=== PATIENT | male | born 1995 | race Caucasian/White ===

== ENCOUNTER 2017-10-11 05:03 | Emergency (ER) | payer MEDICAID ==
[2017-10-11 05:04] VITALS: BP 174/111; PULSE 97; RESP 16; TEMP 98; O2SAT 98
[2017-10-11] MEDS ORDERED: SODIUM CHLOR 0.9% 1000 ML INJ 1,000 ML IV SCH (05:32)
[2017-10-11] MEDS ORDERED: KETOROLAC TROMETHAMINE 30 MG/ML (IVP) VIAL IVP ONE (05:45)
[2017-10-11] MEDS ORDERED: ONDANSETRON HCL 4 MG/2 ML VIAL IVP ONE (05:45)
[2017-10-11] MEDS ORDERED: SODIUM CHLORIDE 0.9% FLUSH 10 ML FLUSH IV FLUSH PRN (05:45)
[2017-10-11 05:47] VITALS: O2SAT 99
[2017-10-11 05:55] VITALS: BP 157/67; PULSE 78; RESP 18; O2SAT 99
[2017-10-11 05:55] LABS: AUTOMATED NEUTROPHIL # 7.8 TH/MM3 (1.8-7.7); BASOPHIL # 0.1 TH/MM3 (0-0.2); BASOPHIL % 0.5 % (0.0-2.0); EOSINOPHIL # 0.2 TH/MM3 (0-0.4); EOSINOPHIL % 1.4 % (0.0-4.0); HEMATOCRIT 49.6 % (39.0-51.0); HEMOGLOBIN 16.7 GM/DL (13.0-17.0); LYMPH % 37.7 % (9.0-44.0); LYMPHOCYTE # 5.5 TH/MM3 (1.0-4.8); MEAN CELL VOLUME 93.3 FL (80.0-100.0); MEAN CORPUSCULAR HEMOGLOBIN 31.3 PG (27.0-34.0); MEAN CORPUSCULAR HGB CONC 33.6 % (32.0-36.0); MEAN PLATELET VOLUME 8.9 FL (7.0-11.0); MONO % 6.7 % (0.0-8.0); NEUT % 53.7 % (16.0-70.0); PLATELET COUNT 293 TH/MM3 (150-450); RED BLOOD COUNT 5.32 MIL/MM3 (4.50-5.90); RED CELL DISTRIBUTION WIDTH 13.2 % (11.6-17.2); WHITE BLOOD COUNT 14.5 TH/MM3 (4.0-11.0)
[2017-10-11 06:12] LABS: ALBUMIN 4.1 GM/DL (3.4-5.0); ALT (GPT) 27 U/L (12-78); AST (GOT) 15 U/L (15-37); BICARBONATE 27.9 MEQ/L (21.0-32.0); BLOOD UREA NITROGEN 9 MG/DL (7-18); CALCIUM 9.5 MG/DL (8.5-10.1); CHLORIDE 104 MEQ/L (98-107); CREATININE 0.27 MG/DL (0.60-1.30); GLOMERULAR FILTRATION RATE 416 ML/MIN (>89); GLUCOSE,RANDOM 87 MG/DL (74-106); SODIUM (NA) 140 MEQ/L (136-145)
[2017-10-11 06:14] LABS: ALKALINE PHOSPHATASE 85 U/L (45-117); TOTAL BILIRUBIN ADULT 0.5 MG/DL (0.2-1.0); TOTAL PROTEIN 8.2 GM/DL (6.4-8.2)
[2017-10-11 06:19] LABS: BACTERIA, URINE RARE /hpf; BILIRUBIN, URINE NEG (NEG); BLOOD, URINE MOD (NEG); GLUCOSE,URINE NEG (NEG); HYALINE CAST, URINE 2 /lpf (RARE); KETONE, URINE NEG (NEG); MUCUS URINE FEW /lpf (OCC); NITRITE,URINE NEG (NEG); PH, URINE 6.5 (5.0-8.5); SQUAMOUS EPITHELIAL CELL URINE <1 /hpf (0-5); URINE COLOR LIGHT-YELLOW (YELLW/STRAW); URINE LEUKOCYTE ESTERASE NEG (NEG)
--- NOTE | 2017-10-11 06:30 | RADRPT ---
EXAM DATE/TIME: 10/11/2017 05:59 [place] COMPARISON: No previous studies available for comparison. INDICATIONS : Right flank pain. ORAL CONTRAST: No oral contrast ingested. RADIATION DOSE: 25.30 CTDIvol (mGy) MEDICAL HISTORY : Muscular distrophy. SURGICAL HISTORY : Cholecystectomy. Guan rods. ENCOUNTER: Initial ACUITY: 1 day PAIN SCALE: 7/10 LOCATION: Right flank TECHNIQUE: Volumetric scanning of the abdomen and pelvis was performed. Using automated exposure control and ad justment of the mA and/or kV according to patient size, radiation dose was kept as low as reasonably achievable to obtain optimal diagnostic quality images. DICOM format image data is available electro nically for review and comparison. FINDINGS: LOWER LUNGS: The visualized lower lungs are clear. LIVER: Homogeneous density without lesion. There is no dilation of the biliary tree. Patient is status post cholecystectomy. SPLEEN: Normal size without lesion. PANCREAS: Within normal limits. KIDNEYS: Left kidney is radiographically normal. Right-sided hydronephrosis and hydroureter due to a 4-[address] one in the distal right ureter at the level just above the right acetabular roof.. ADRENAL GLANDS: Within normal limits. VASCULAR: There is no aortic aneurysm. BOWEL/MESENTERY: The stomach, small bowel, and colon demonstrate no acute abnormality. There is no free intraperitone al air or fluid. Appendix is identified and is radiographically normal. ABDOMINAL WALL: Within normal limits. RETROPERITONEUM: There is no lymphadenopathy. BLADDER: No wall thickening or mass. REPRODUCTIVE: Within normal limits. INGUINAL: There is no lymphadenopathy or hernia. MUSCULOSKELETAL: Severe dextrorotoscoliosis of the thoracolumbar spine with extensive Guan giuseppe fixation. CONCLUSION: 1. Patient's symptoms are due to a 4-5 mm stone in the distal right ureter, just above the right acet abular roof with resulting hydroureter and right hydronephrosis. 2. Patient is status post cholecystectomy. 3. Marked rotoscoliosis of the thoracolumbar spine with extensive Guan giuseppe fixation. Yves Ewing MD on October 11, 2017 at 6:24 Board Certified Radiologist. This report was verified electronically.
[2017-10-11 06:48] LABS: BANDS 1 % (0-6); BASOPHILS 1 % (0-2); LYMPHOCYTES 38 % (9-44); MONOCYTES 4 % (0-8); NEUTROPHIL # MANUAL DIFF 8.1 TH/MM3 (1.8-7.7); POLYS (SEG NEUTROPHILS) 55 % (16-70)
[2017-10-11] MEDS ORDERED: NORC5TAB PO (06:58)
[2017-10-11] MEDS ORDERED: TAMS5CAP PO (06:58)
--- NOTE | 2017-10-11 06:58 | PD ---
HPI Chief Complaint: Flank/Kidney Pain Time Seen by Provider: 05:24 Travel History International Travel<30 days: No Contact w/Intl Traveler<30days: No Traveled to known affect area: No History of Present Illness HPI Patient is a 22 year old male who comes in complaining of right flank pain and dark urine. He says he had some dark urine about a week ago and he thinks it is due to a new filter that he put on his water. He says his urine cleared up and then became bloody again yesterday. He also developed severe pain to his right flank. He denies nausea or vomiting. He denies fever chills. He has not taken anything for the pain. He denies burning with urination. Severity is mild to moderate. PFSH Past Medical History Diabetes: No Diminished Hearing: No Musculoskeletal: Yes () Immunizations Current: Yes Past Surgical History Cholecystectomy: Yes Other Surgery: Yes (SCOLIOSIS AND GALLBLADDER) Social History Alcohol Use: No Tobacco Use: No Substance Use: No Allergies-Medications (Allergen,Severity, Reaction): Coded Allergies: No Known Allergies (Unverified Adverse Reaction, Unknown, 10/11/17) Reported Meds & Prescriptions Reported Meds & Active Scripts Active No Active Prescriptions or Reported Medications Review of Systems Except as stated in HPI: all other systems reviewed are Neg General / Constitutional: No: Fever, Chills HENT: No: Headaches, Lightheadedness Cardiovascular: No: Chest Pain or Discomfort Respiratory: No: Shortness of Breath Gastrointestinal: Positive: Abdominal Pain, No: Nausea, Vomiting Genitourinary: Positive: Hematuria, Flank Pain Skin: No Rash, No Change in Pigmentation Neurologic: No: Weakness, Dizziness Physical Exam Narrative GENERAL: Awake and alert, no acute distress. SKIN: Focused skin assessment warm/dry. No wounds or signs of infection. HEAD: Atraumatic. Normocephalic. EYES: Pupils equal and round. No scleral icterus. ENT: Mucous membranes pink and moist. NECK: Trachea midline. No JVD. CARDIOVASCULAR: Regular rate and rhythm. No murmur appreciated. RESPIRATORY: No accessory muscle use. Clear to auscultation. Breath sounds equal bilaterally. GASTROINTESTINAL: Abdomen soft, nondistended. Right CVA tenderness, right lower quadrant abdominal pain. No rebound or guarding. MUSCULOSKELETAL: No obvious deformities. No clubbing. No cyanosis. No edema. NEUROLOGICAL: Awake and alert. No obvious cranial nerve deficits. Motor grossly within normal limits. Normal speech. PSYCHIATRIC: Appropriate mood and affect; insight and judgment normal. Data Data Last Documented VS Vital Signs Date Time Temp Pulse Resp B/P (MAP) Pulse Ox O2 Delivery O2 Flow Rate FiO2 10/11/17 05:55 78 18 157/67 (97) 99 Room Air 10/11/17 05:04 98.0 Orders Orders Complete Blood Count With Diff (10/11/17 05:32) Comprehensive Metabolic Panel (10/11/17 05:32) Urinalysis - C+S If Indicated (10/11/17 05:32) Ct Abd/Pel W/O Iv Contrast (10/11/17 05:32) Iv Access Insert/Monitor (10/11/17 05:32) Ecg Monitoring (10/11/17 05:32) Oximetry (10/11/17 05:32) Ondansetron Inj (Zofran Inj) (10/11/17 05:45) Sodium Chlor 0.9% 1000 Ml Inj (Ns 1000 M (10/11/17 05:32) Sodium Chloride 0.9% Flush (Ns Flush) (10/11/17 05:45) Ketorolac Inj (Toradol Inj) (10/11/17 05:45) Acetamin-Hydrocod 325-5 Mg ([place] 5-325 (10/11/17 07:00) Labs Laboratory Tests Test 10/11/17 05:40 White Blood Count 14.5 TH/MM3 Red Blood Count 5.32 MIL/MM3 Hemoglobin 16.7 GM/DL Hematocrit 49.6 % Mean Corpuscular Volume 93.3 FL Mean Corpuscular Hemoglobin 31.3 PG Mean Corpuscular Hemoglobin Concent 33.6 % Red Cell Distribution Width 13.2 % Platelet Count 293 TH/MM3 Mean Platelet Volume 8.9 FL Neutrophils (%) (Auto) 53.7 % Lymphocytes (%) (Auto) 37.7 % Monocytes (%) (Auto) 6.7 % Eosinophils (%) (Auto) 1.4 % Basophils (%) (Auto) 0.5 % Neutrophils # (Auto) 7.8 TH/MM3 Lymphocytes # (Auto) 5.5 TH/MM3 Monocytes # (Auto) 1.0 TH/MM3 Eosinophils # (Auto) 0.2 TH/MM3 Basophils # (Auto) 0.1 TH/MM3 CBC Comment AUTO DIFF Differential Total Cells Counted 100 Neutrophils % (Manual) 55 % Band Neutrophils % 1 % Lymphocytes % 38 % Monocytes % 4 % Eosinophils % 1 % Basophils % 1 % Neutrophils # (Manual) 8.1 TH/MM3 Differential Comment FINAL DIFF MANUAL Atypical Lymphocytes % Platelet Estimate NORMAL Platelet Morphology Comment NORMAL Red Cell Morphology Comment NORMAL Urine Color LIGHT-YELLOW Urine Turbidity CLEAR Urine pH 6.5 Urine Specific [place] 1.006 Urine Protein NEG mg/dL Urine Glucose (UA) NEG mg/dL Urine Ketones NEG mg/dL Urine Occult Blood MOD Urine Nitrite NEG Urine Bilirubin NEG Urine Urobilinogen LESS THAN 2.0 MG/DL Urine Leukocyte Esterase NEG Urine RBC 23 /hpf Urine WBC 2 /hpf Urine Squamous Epithelial Cells <1 /hpf Urine Bacteria RARE /hpf Urine Hyaline Casts 2 /lpf Urine Mucus FEW /lpf Microscopic Urinalysis Comment CULT NOT INDICATED Blood Urea Nitrogen 9 MG/DL Creatinine 0.27 MG/DL Random Glucose 87 MG/DL Total Protein 8.2 GM/DL Albumin 4.1 GM/DL Calcium Level 9.5 MG/DL Alkaline Phosphatase 85 U/L Aspartate Amino Transf (AST/SGOT) 15 U/L Alanine Aminotransferase (ALT/SGPT) 27 U/L Total Bilirubin 0.5 MG/DL Sodium Level 140 MEQ/L Potassium Level 3.7 MEQ/L Chloride Level 104 MEQ/L Carbon Dioxide Level 27.9 MEQ/L Anion Gap 8 MEQ/L Estimat Glomerular Filtration Rate 416 ML/MIN [facility] Medical Decision Making Medical Screen Exam Complete: Yes Emergency Medical Condition: Yes Medical Record Reviewed: Yes Differential Diagnosis UTI versus renal stone versus dehydration Narrative Course Patient is a 22-year-old male comes in complaining of right flank pain and dark urine. Exam shows right CVA tenderness as well as right lower quadrant tenderness. IV established, labs sent. Labs show an elevated white blood cell count 14.7, no other acute abnormalities. CT abdomen and pelvis performed shows an obstructing renal stone with right-sided hydronephrosis. Creatinine is within normal limits. Last 24 hours Impressions Abdomen/Pelvis CT 10/11/17 0532 Signed Impressions: Service Date/Time: October 05:59 - CONCLUSION: 1. Patient's symptoms are due to a 4-5 mm stone in the distal right ureter, just above the right acetabular roof with resulting hydroureter and right hydronephrosis. 2. Patient is status post cholecystectomy. 3. Marked rotoscoliosis of the thoracolumbar spine with extensive Guan giuseppe fixation. Yves Ewing MD Patient given IV fluids, Toradol. He reports some improvement, but still has some pain. Given a [place]. He is advised follow-up with urology. Advised to drink plenty of fluids. Discharged home with prescriptions for Flomax as well as pain medicine. Advised return anytime for any worsening symptoms. Diagnosis Primary Impression: Kidney stone Referrals: Bart Garcia MD call for appointment Patient Instructions: General Instructions, Kidney Stones (ED) Additional Instructions: Drink plenty of fluids. Follow-up with urology. Take ibuprofen for pain. You can take a [place] as needed for severe pain. Return to the ED as needed for any worsening symptoms. Scripts Hydrocodone-Acetaminophen ([place]) 5 Mg-325 Mg Tab 1 TAB PO Q6H Y for PAIN, #12 TAB 0 Refills Prov: Lena Echeverria MD 10/11/17 Tamsulosin (Flomax) 0.4 Mg Cap 0.4 MG PO HS for Manage Prostate Problems, #7 CAP 0 Refills Prov: Lena Echeverria MD 10/11/17 Disposition: 01 DISCHARGE HOME Condition: Stable Lena Echeverria MD October 11, 2017 06:58
[2017-10-11] MEDS ORDERED: ACETAMINOPHEN/HYDROcodone 325 MG/5 MG TAB PO ONE (07:00)
== END 2017-10-11 07:08 | disposition home or self-care (01) ==
LOC: NEPE 05:03
DX: N13.2 Hydronephrosis with renal and ureteral calculous obstruction (principal)
CPT/HCPCS: 74176; 80053; 81001; 85007; 85027; 96361; 96374; 96375; J1885; J2405; J7030

== ENCOUNTER 2017-10-12 19:05 | Inpatient (IN) | payer MEDICAID ==
[~2017-10-12] VITALS: Ht 170.2 cm; Wt 71.0 kg
[~2017-10-12 19:05] MED LIST: NORC5TAB PO; TAMS5CAP PO
[2017-10-12 19:19] VITALS: BP 152/92; PULSE 83; RESP 16; TEMP 99.1; O2SAT 83
[2017-10-12] MEDS ORDERED: MORPHINE SULFATE 4 MG/ML INJ IV PUSH ONE (20:15)
[2017-10-12] MEDS ORDERED: ONDANSETRON HCL 4 MG/2 ML VIAL IV PUSH ONE (20:15)
[2017-10-12] MEDS ORDERED: KETOROLAC TROMETHAMINE 30 MG/ML (IVP) VIAL IV PUSH ONE (20:15)
[2017-10-12] MEDS ORDERED: SODIUM CHLOR 0.9% 1000 ML INJ 1,000 ML IV ONE (20:15)
--- NOTE | 2017-10-12 20:15 | PD ---
HPI Chief Complaint: Flank/Kidney Pain Time Seen by Provider: 19:59 Travel History International Travel<30 days: No Contact w/Intl Traveler<30days: No Traveled to known affect area: No History of Present Illness HPI This is a 22-year-old male who has a history of spinal muscular atrophy who presents to the emergency department with right-sided flank pain, constant, severe, 10 out of 10 associated with nausea. Yesterday he was seen in the emergency department and diagnosed with a 4-5 mm stone in the distal right ureter with hydroureter and hydronephrosis. Patient was discharged home. His pain persisted and worsened overnight. He is wheelchair-bound and has difficulty caring for himself when he is ill. He was unable to fill his prescriptions and his symptoms have only been getting worse. He denies any fevers or chills. PFSH Past Medical History Diabetes: No Diminished Hearing: No Musculoskeletal: Yes (MD) Immunizations Current: Yes Tetanus Vaccination: Unknown Influenza Vaccination: No Past Surgical History Cholecystectomy: Yes Other Surgery: Yes (SCOLIOSIS AND GALLBLADDER) Social History Alcohol Use: No Tobacco Use: No Substance Use: No Allergies-Medications (Allergen,Severity, Reaction): Coded Allergies: No Known Allergies (Unverified Adverse Reaction, Unknown, 10/11/17) Reported Meds & Prescriptions Reported Meds & Active Scripts Active Review of Systems Except as stated in HPI: all other systems reviewed are Neg Physical Exam Narrative GENERAL:Well appearing, no acute distress SKIN: Focused skin assessment warm and dry. HEAD: Atraumatic. Normocephalic. EYES: Pupils equal and round. No injection or drainage. ENT: Moist mucous membranes NECK: Trachea midline. CARDIOVASCULAR: Regular rate and rhythm. No murmur appreciated. RESPIRATORY: Clear to auscultation. Breath sounds equal bilaterally. GASTROINTESTINAL: Abdomen soft, non-tender, nondistended. : Right CVA tenderness. MUSCULOSKELETAL: Contractures to the bilateral upper extremities. NEUROLOGICAL: Awake and alert. No obvious cranial nerve deficits. PSYCHIATRIC: Appropriate mood and affect; insight and judgment normal. Data Data Last Documented VS Vital Signs Date Time Temp Pulse Resp B/P (MAP) Pulse Ox O2 Delivery O2 Flow Rate FiO2 10/12/17 22:23 62 16 137/90 (106) 98 10/12/17 19:19 99.1 Room Air Orders Orders Complete Blood Count With Diff (10/12/17 20:07) Basic Metabolic Panel (Bmp) (10/12/17 20:07) ^ Insert Iv (10/12/17 20:07) Urinalysis - C+S If Indicated (10/12/17 20:07) Ketorolac Inj (Toradol Inj) (10/12/17 20:15) Morphine Inj (Morphine Inj) (10/12/17 20:15) Sodium Chlor 0.9% 1000 Ml Inj (Ns 1000 M (10/12/17 20:15) Ondansetron Inj (Zofran Inj) (10/12/17 20:15) Admit Order (Ed Use Only) (10/12/17 22:52) Labs Laboratory Tests Test 10/12/17 20:58 White Blood Count 15.9 TH/MM3 Red Blood Count 5.11 MIL/MM3 Hemoglobin 16.0 GM/DL Hematocrit 47.8 % Mean Corpuscular Volume 93.4 FL Mean Corpuscular Hemoglobin 31.3 PG Mean Corpuscular Hemoglobin Concent 33.5 % Red Cell Distribution Width 13.0 % Platelet Count 276 TH/MM3 Mean Platelet Volume 9.3 FL Neutrophils (%) (Auto) 75.5 % Lymphocytes (%) (Auto) 16.3 % Monocytes (%) (Auto) 7.5 % Eosinophils (%) (Auto) 0.4 % Basophils (%) (Auto) 0.3 % Neutrophils # (Auto) 12.0 TH/MM3 Lymphocytes # (Auto) 2.6 TH/MM3 Monocytes # (Auto) 1.2 TH/MM3 Eosinophils # (Auto) 0.1 TH/MM3 Basophils # (Auto) 0.0 TH/MM3 CBC Comment DIFF FINAL Differential Comment Urine Color [place] Urine Turbidity Slightly Urine pH 6.5 Urine Specific [place] 1.010 Urine Protein 30 mg/dL Urine Glucose (UA) NEG mg/dL Urine Ketones 40 mg/dL Urine Occult Blood LARGE Urine Nitrite NEG Urine Bilirubin NEG Urine Urobilinogen 0.2 MG/DL Urine Leukocyte Esterase NEG Urine RBC /hpf Urine WBC 1 /hpf Urine Bacteria RARE /hpf Microscopic Urinalysis Comment CULT NOT INDICATED Blood Urea Nitrogen 10 MG/DL Creatinine 0.24 MG/DL Random Glucose 80 MG/DL Calcium Level 9.0 MG/DL Sodium Level 139 MEQ/L Potassium Level 3.7 MEQ/L Chloride Level 102 MEQ/L Carbon Dioxide Level 26.1 MEQ/L Anion Gap 11 MEQ/L Estimat Glomerular Filtration Rate 477 ML/MIN [facility]DM Medical Decision Making Medical Screen Exam Complete: Yes Emergency Medical Condition: Yes Medical Record Reviewed: Yes (Patient was seen in the emergency department yesterday and diagnosed with a 5 mm obstructing right-sided stone) Interpretation(s) Leukocytosis with 75% neutrophils Electrolytes are reassuring Urinalysis demonstrates ketones and red blood cells Differential Diagnosis Nephrolithiasis, obstructive uropathy, pyelonephritis Narrative Course This is a 22-year-old male with a history of spinal muscular atrophy who presents to the emergency department with a known kidney stone with poorly controlled pain. Patient will be admitted for pain control and urology consultation in the setting of hydronephrosis. Physician Communication Physician Communication Discussed with Dr. Lundberg Diagnosis Primary Impression: Kidney stone Admitting Information Admitting Physician Requests: Admit Mita Gonzlaez MD October 12, 2017 20:15
[2017-10-12 21:22] LABS: BILIRUBIN, URINE NEG (NEG); BLOOD, URINE LARGE (NEG); GLUCOSE,URINE NEG (NEG); KETONE, URINE 40 mg/dL (NEG); NITRITE,URINE NEG (NEG); PH, URINE 6.5 (5.0-8.5); URINE COLOR Pink (YELLW/STRAW); URINE LEUKOCYTE ESTERASE NEG (NEG)
[2017-10-12 21:28] LABS: BICARBONATE 26.1 MEQ/L (21.0-32.0); CREATININE 0.24 MG/DL (0.60-1.30)
[2017-10-12 21:29] LABS: BASOPHIL % 0.3 % (0.0-2.0); EOSINOPHIL # 0.1 TH/MM3 (0-0.4); EOSINOPHIL % 0.4 % (0.0-4.0); HEMATOCRIT 47.8 % (39.0-51.0); LYMPH % 16.3 % (9.0-44.0); LYMPHOCYTE # 2.6 TH/MM3 (1.0-4.8); MEAN CELL VOLUME 93.4 FL (80.0-100.0); MEAN CORPUSCULAR HEMOGLOBIN 31.3 PG (27.0-34.0); MEAN CORPUSCULAR HGB CONC 33.5 % (32.0-36.0); MEAN PLATELET VOLUME 9.3 FL (7.0-11.0); MONO % 7.5 % (0.0-8.0); MONOCYTE # 1.2 TH/MM3 (0-0.9); NEUT % 75.5 % (16.0-70.0); PLATELET COUNT 276 TH/MM3 (150-450); RED BLOOD COUNT 5.11 MIL/MM3 (4.50-5.90); WHITE BLOOD COUNT 15.9 TH/MM3 (4.0-11.0)
[2017-10-12 21:31] LABS: BACTERIA, URINE RARE /hpf
[2017-10-12 22:23] VITALS: BP 137/90; PULSE 62; RESP 16; O2SAT 98
--- NOTE | 2017-10-12 22:58 | HHI.HP ---
[facility] Service [facility] Primary Care Physician Kathy Titus MD Admission Diagnosis hydronephrosis, kidney stone Diagnoses: (1) Renal stone Diagnosis: [place] (2) Hydronephrosis Diagnosis: Principal (3) Intractable pain Diagnosis: Principal (4) Spinal muscular atrophy Diagnosis: [place] Travel History International Travel<30 Days: No Contact w/Intl Traveler <30 Da: No Traveled to Known Affected Are: No History of Present Illness This is a 22-year-old male with a PMH of Spinal Muscular Atrophy who presented to the ER with complaints of right-sided flank pain x1 day. Seen in ER on for similar complaints, CT Abd/Pelvis w/ 4-5mm stone distal right ureter w/ hydroureter and hydronephrosis, s/p IVF/Toradol, given referral to Urology and Rx for Flomax/[place]. Returns w/ ongoing complaints as he was unable to fill prescriptions, pt is wheelchair-bound due to SMA and has difficulty caring for self. On arrival, BP 152/92, HR 83, O2 sat 98% on RA, Temp 99.1. WBC 15.9. Chemistry essentially unremarkable. UA with significant hematuria. Review of Systems Except as stated in HPI: all other systems reviewed are Neg ROS: 14 point review of systems otherwise negative. Past Family Social History Past Medical History PMH: Spinal Muscular Atrophy Past Surgical History PAST SURGICAL HISTORY: Cholecystectomy Allergies: Coded Allergies: No Known Allergies (Unverified Adverse Reaction, Unknown, 10/11/17) Family History PAST FAMILY HISTORY: Reviewed. No h/o DM or CAD Social History PAST SOCIAL HISTORY: Negative for alcohol, tobacco or drugs. Physical Exam Vital Signs Vital Signs Date Time Temp Pulse Resp B/P (MAP) Pulse Ox O2 Delivery O2 Flow Rate FiO2 10/12/17 22:23 62 16 137/90 (106) 98 10/12/17 19:19 99.1 83 16 152/92 (112) 83 Room Air Physical Exam PE: GENERAL: Pleasant young male in no acute distress. Wheelchair at bedside HEENT: PERRLA, EOMI. No scleral icterus or conjunctival pallor. No lid lag or facial droop. CARDIOVASCULAR: Regular rate and rhythm. No obvious murmurs to auscultation. No chest tenderness to palpation. RESPIRATORY: No obvious rhonchi or wheezing. Clear to auscultation. Breath sounds equal bilaterally. GASTROINTESTINAL: Abdomen soft, non-tender, nondistended. BS normal. MUSCULOSKELETAL: Extremities without clubbing, cyanosis, or edema. No obvious deformities. Right flank tenderness to palpation. Contracted extremities. NEUROLOGICAL: Awake, alert and oriented x4. No focal neurologic deficits. Moving both upper and lower extremities spontaneously. Laboratory Laboratory Tests Test 10/12/17 20:58 White Blood Count 15.9 Red Blood Count 5.11 Hemoglobin 16.0 Hematocrit 47.8 Mean Corpuscular Volume 93.4 Mean Corpuscular Hemoglobin 31.3 Mean Corpuscular Hemoglobin Concent 33.5 Red Cell Distribution Width 13.0 Platelet Count 276 Mean Platelet Volume 9.3 Neutrophils (%) (Auto) 75.5 Lymphocytes (%) (Auto) 16.3 Monocytes (%) (Auto) 7.5 Eosinophils (%) (Auto) 0.4 Basophils (%) (Auto) 0.3 Neutrophils # (Auto) 12.0 Lymphocytes # (Auto) 2.6 Monocytes # (Auto) 1.2 Eosinophils # (Auto) 0.1 Basophils # (Auto) 0.0 CBC Comment DIFF FINAL Differential Comment Urine Color [place] Urine Turbidity Slightly Urine pH 6.5 Urine Specific [place] 1.010 Urine Protein 30 Urine Glucose (UA) NEG Urine Ketones 40 Urine Occult Blood LARGE Urine Nitrite NEG Urine Bilirubin NEG Urine Urobilinogen 0.2 Urine Leukocyte Esterase NEG Urine RBC Urine WBC 1 Urine Bacteria RARE Microscopic Urinalysis Comment CULT NOT INDICATED Blood Urea Nitrogen 10 Creatinine 0.24 Random Glucose 80 Calcium Level 9.0 Sodium Level 139 Potassium Level 3.7 Chloride Level 102 Carbon Dioxide Level 26.1 Anion Gap 11 Estimat Glomerular Filtration Rate 477 Result Diagram: 10/12/17205710/12/172057 Caprini VTE Risk Assessment Caprini VTE Risk Assessment: No/Low Risk (score <= 1) Caprini Risk Assessment Model Point Value = 1 Point Value = 2 Point Value = 3 Point Value = 5 Age 41-60 Minor surgery BMI > 25 kg/m2 Swollen legs Varicose veins or History of unexplained or recurrent spontaneous Oral contraceptives or hormone replacement Sepsis (< 1 month) Serious lung disease, including pneumonia (< 1 month) Abnormal pulmonary function Acute myocardial infarction Congestive heart failure (< 1 month) History of inflammatory bowel disease Medical patient at bed rest Age 61-74 Arthroscopic surgery Major open surgery (> 45 min) Laparoscopic surgery (> 45 min) Malignancy Confined to bed (> 72 hours) Immobilizing plaster cast Central venous access Age >= 75 History of VTE Family history of VTE Factor V Leiden Prothrombin [id number] Lupus anticoagulant Anticardiolipin antibodies Elevated serum homocysteine Heparin-induced thrombocytopenia Other congenital or acquired thrombophilia Stroke (< 1 month) Elective arthroplasty Hip, pelvis, or leg fracture Acute spinal cord injury (< 1 month) Prophylaxis Regimen Total Risk Factor Score Risk Level Prophylaxis Regimen 0-1 Low Early ambulation 2 Moderate Order ONE of the following: *Sequential Compression Device (SCD) *Heparin 5000 units SQ BID 3-4 Higher Order ONE of the following medications: *Heparin 5000 units SQ TID *Enoxaparin/Lovenox 40 mg SQ daily (WT < 150 kg, CrCl > 30 mL/min) *Enoxaparin/Lovenox 30 mg SQ daily (WT < 150 kg, CrCl > 10-29 mL/min) *Enoxaparin/Lovenox 30 mg SQ BID (WT < 150 kg, CrCl > 30 mL/min) AND/OR *Sequential Compression Device (SCD) 5 or more Highest Order ONE of the following medications: *Heparin 5000 units SQ TID (Preferred with Epidurals) *Enoxaparin/Lovenox 40 mg SQ daily (WT < 150 kg, CrCl > 30 mL/min) *Enoxaparin/Lovenox 30 mg SQ daily (WT < 150 kg, CrCl > 10-29 mL/min) *Enoxaparin/Lovenox 30 mg SQ BID (WT < 150 kg, CrCl > 30 mL/min) AND *Sequential Compression Device (SCD) Assessment and Plan Problem List: (1) Renal stone ICD Code: N20.0 - Calculus of kidney (2) Hydronephrosis ICD Code: N13.30 - Unspecified hydronephrosis (3) Intractable pain ICD Code: R52 - Pain, unspecified (4) Spinal muscular atrophy ICD Code: G12.9 - Spinal muscular atrophy, unspecified Assessment and Plan A/P: 1. Renal Stone: c/o acute onset right-flank tenderness, CT Abd/Pelvis 10/11/17 w / symptoms due to 4-5 mm stone distal right ureter, images reviewed by me. Will consult Urology for further evaluation/intervention. U/a w/ hematuria, WBC 15.9, will treat empirically for infected stone. Continue w/ Flomax. 2. Hydronephrosis: secondary to above, continue w/ above plan, consult Urology for further evaluation, IVF for hydration. 3. Intractable Pain: secondary to renal stone, s/p Toradol/Morphine in ER w/ improvement, hold Toradol in light of renal stone to avoid renal injury, continue w/ analgesics/antiemetics. 4. Spinal Muscular Atrophy: wheelchair-bound, at baseline. 5. DVT Prophylaxis: SCD/Teds 6. Social work for d/c planning as needed 7. Case discussed w/ ER physician at length, labs/records/imaging reviewed by me. Physician Certification 2 Midnight Certification Type: Admission for Inpatient Services Order for Inpatient Services The services are ordered in accordance with Medicare regulations or non- Medicare payer requirements, as applicable. In the case of services not specified as inpatient-only, they are appropriately provided as inpatient services in accordance with the 2-midnight benchmark. Estimated LOS (days): 2 days is the estimated time the patient will need to remain in the hospital, assuming treatment plan goals are met and no additional complications. Post-Hospital Plan: Not yet determined Wendy Lundberg MD October 12, 2017 22:58
[2017-10-12] MEDS ORDERED: ACETAMINOPHEN 325 MG TAB PO PRN (23:00)
[2017-10-12] MEDS ORDERED: MORPHINE SULFATE 2 MG/ML SYRINGE IV PUSH PRN (23:00)
[2017-10-12] MEDS ORDERED: LACTULOSE SYRUP 20 GM/30 ML CUP PO PRN (23:00)
[2017-10-12] MEDS ORDERED: MAGNESIUM HYDROXIDE SUSP 30 ML CUP PO PRN (23:00)
[2017-10-12] MEDS ORDERED: SENNOSIDES 8.6 MG TAB PO PRN (23:00)
[2017-10-12] MEDS ORDERED: ONDANSETRON HCL 4 MG/2 ML VIAL IVP PRN (23:00)
[2017-10-12] MEDS ORDERED: BISACODYL 10 MG SUPP RECTAL PRN (23:00)
[2017-10-12] MEDS ORDERED: SODIUM CHLORIDE 0.9% FLUSH 10 ML FLUSH IV FLUSH PRN (23:00)
[2017-10-12] MEDS ORDERED: ACETAMINOPHEN/HYDROcodone 325 MG/5 MG TAB PO PRN (23:00)
[2017-10-13 01:45] VITALS: BP 149/82; PULSE 75; RESP 16; TEMP 97.8; O2SAT 99
[2017-10-13] MEDS: SODIUM CHLOR 0.9% 1000 ML INJ 1,000 ML IV SCH ×3 (02:23→17:51)
[2017-10-13] MEDS: cefTRIAXone INJ 1,000 MG in SODIUM CHLORIDE 0.9% INJ 100 ML IV SCH ×2 (02:23→22:43)
[2017-10-13 04:00] VITALS: BP 121/71; PULSE 70; RESP 18; TEMP 97.7; O2SAT 100
[2017-10-13 07:03] LABS: AUTOMATED NEUTROPHIL # 3.8 TH/MM3 (1.8-7.7); BASOPHIL # 0.1 TH/MM3 (0-0.2); BASOPHIL % 0.8 % (0.0-2.0); EOSINOPHIL # 0.2 TH/MM3 (0-0.4); HEMATOCRIT 40.5 % (39.0-51.0); HEMOGLOBIN 13.8 GM/DL (13.0-17.0); LYMPH % 40.2 % (9.0-44.0); LYMPHOCYTE # 3.1 TH/MM3 (1.0-4.8); MEAN CELL VOLUME 93.6 FL (80.0-100.0); MEAN CORPUSCULAR HEMOGLOBIN 31.8 PG (27.0-34.0); MEAN PLATELET VOLUME 9.2 FL (7.0-11.0); MONO % 7.6 % (0.0-8.0); MONOCYTE # 0.6 TH/MM3 (0-0.9); NEUT % 49.4 % (16.0-70.0); PLATELET COUNT 229 TH/MM3 (150-450); RED BLOOD COUNT 4.33 MIL/MM3 (4.50-5.90); WHITE BLOOD COUNT 7.7 TH/MM3 (4.0-11.0)
[2017-10-13 07:50] LABS: ALKALINE PHOSPHATASE 81 U/L (45-117); ALT (GPT) 120 U/L (12-78); AST (GOT) 113 U/L (15-37); BICARBONATE 26.6 MEQ/L (21.0-32.0); BLOOD UREA NITROGEN 7 MG/DL (7-18); CALCIUM 8.1 MG/DL (8.5-10.1); CHLORIDE 109 MEQ/L (98-107); CREATININE LESS THAN 0.15 MG/DL (0.60-1.30); GLOMERULAR FILTRATION RATE 820 ML/MIN (>89); GLUCOSE,RANDOM 82 MG/DL (74-106); SODIUM (NA) 144 MEQ/L (136-145); TOTAL BILIRUBIN ADULT 0.5 MG/DL (0.2-1.0); TOTAL PROTEIN 6.2 GM/DL (6.4-8.2)
[2017-10-13 08:00] VITALS: BP 134/91; PULSE 68; RESP 16; TEMP 97.6; O2SAT 98
[2017-10-13] MEDS: DOCUSATE SODIUM 50 MG/SENNA 8.6 MG TAB PO SCH ×2 (08:46→21:32)
[2017-10-13] MEDS: TAMSULOSIN HCL 0.4 MG CAP PO SCH (08:46)
[2017-10-13] MEDS: SODIUM CHLORIDE 0.9% FLUSH 10 ML FLUSH IV FLUSH SCH ×2 (08:46→21:00)
--- NOTE | 2017-10-13 09:59 | HHI.PR ---
Subjective Remarks Follow-up for kidney stone and right hydronephrosis. Patient is currently doing well. Resting in bed. No fever or chills. He continues to have some right flank pain. Father is at bedside. Objective Vitals Vital Signs Date Time Temp Pulse Resp B/P (MAP) Pulse Ox O2 Delivery O2 Flow Rate FiO2 10/13/17 09:37 Room Air 10/13/17 04:00 97.7 70 18 121/71 (88) 100 10/13/17 01:45 97.8 75 16 149/82 (104) 99 10/13/17 00:30 Room Air 10/12/17 22:23 62 16 137/90 (106) 98 10/12/17 19:19 99.1 83 16 152/92 (112) 83 Room Air I/O 10/12/17 10/12/17 10/12/17 10/13/17 10/13/17 10/13/17 07:00 15:00 23:00 07:00 15:00 23:00 Intake Total 1000 ml 897 ml Output Total 450 ml Balance 1000 ml 447 ml Intake Oral 240 ml IV Total 1000 ml 657 ml Output Urine Total 450 ml # Voids 1 # Bowel Movements 0 Result Diagram: 10/13/17 0626 10/13/17 06 Objective Remarks GENERAL: Alert, NAD. SKIN: Warm and dry. HEAD: Normocephalic. EYES: No scleral icterus. No injection or drainage. NECK: Supple, trachea midline. No JVD or lymphadenopathy. CARDIOVASCULAR: Regular rate and rhythm without murmurs, gallops, or rubs. RESPIRATORY: Breath sounds equal bilaterally. No accessory muscle use. GASTROINTESTINAL: Abdomen soft, non-tender, nondistended. MUSCULOSKELETAL: No cyanosis, or edema. BACK: Nontender without obvious deformity. Mild right sided CVA tenderness. Procedures None. A/P Problem List: (1) Renal stone ICD Code: N20.0 - Calculus of kidney (2) Hydronephrosis ICD Code: N13.30 - Unspecified hydronephrosis (3) Intractable pain ICD Code: R52 - Pain, unspecified (4) Spinal muscular atrophy ICD Code: G12.9 - Spinal muscular atrophy, unspecified Assessment and Plan This is a 22-year-old male with a PMH of Spinal Muscular Atrophy who presented to the ER with complaints of right-sided flank pain x1 day. Seen in ER on for similar complaints, CT Abd/Pelvis w/ 4-5mm stone distal right ureter w/ hydroureter and hydronephrosis, s/p IVF/Toradol, given referral to Urology and Rx for Flomax/[place]. Right distal ureteral stone Right hydronephrosis - Continue Ceftriaxone 1g Q24hrs - Continue NS @ 100cc/hour - Acetaminophen, [place], Morphine for Pain. - Urology eval pending. Spinal Muscular Atrophy: wheelchair-bound, at baseline. Full code. SCDs. Navarro Bey DO October 13, 2017 9:58 am
[2017-10-13 12:00] VITALS: BP 120/81; PULSE 81; RESP 16; TEMP 97.9; O2SAT 96
--- NOTE | 2017-10-13 15:38 | PD.CONS ---
HPI Service Urology Consult Requested By Reason for Consult Nephrolithiasis Primary Care Physician Kathy Titus MD Diagnosis: (1) Renal stone ICD Code: N20.0 - Calculus of kidney (2) Hydronephrosis ICD Code: N13.30 - Unspecified hydronephrosis (3) Intractable pain ICD Code: R52 - Pain, unspecified (4) Spinal muscular atrophy ICD Code: G12.9 - Spinal muscular atrophy, unspecified History of Present Illness 22yo male with spinal muscular dystrophy seen in consultation for right nephrolithiasis. Patient began to experience significant right flank pain a few days ago at which point he reported to the [facility] where a right ureteral stone was identified. His pain was controlled and discharged with followup in Urology clinic. Patient returned to ED last night as his pain worsened and he was unable to fill the pain Rx. No fevers. No hematuria. Currently his pain is well controlled. CT scan upon admit identified a 4-5mm right distal ureteral stone, near UVJ. Mild right hydronephrosis. No N/V. No fevers. No history of kidney stones. Review of Systems ROS Limitations: Clinical Condition Constitutional: DENIES: Fever Eyes: DENIES: Blurred vision Ears, nose, mouth, throat: DENIES: Hearing loss Respiratory: DENIES: Apneas, Cough Cardiovascular: DENIES: Chest pain Gastrointestinal: COMPLAINS OF: Abdominal pain, DENIES: Nausea, Vomiting Genitourinary: DENIES: Hematuria Musculoskeletal: COMPLAINS OF: Back pain Integumentary: DENIES: Rash Neurologic: DENIES: Headache Psychiatric: DENIES: Anxiety Except as stated in HPI: all other systems reviewed are Neg Past Family Social History Past Medical History Spinal Muscular Atrophy Past Surgical History Cholecystectomy Reported Medications Reported Meds & Active Scripts Active Allergies: Coded Allergies: No Known Allergies (Unverified Adverse Reaction, Unknown, 10/11/17) Active Ordered Medications Current Medications Medications (Trade) Dose Ordered Sig/Bruno Route Start Time Stop Time Status Last Admin Sodium Chloride 1,000 ml @ 100 mls/hr Q10H IV 10/12/17 22:56 10/13/17 05:59 (NS Flush) 2 ml UNSCH PRN IV FLUSH 10/12/17 23:00 10/13/17 02:23 (NS Flush) 2 ml BID IV FLUSH 10/13/17 09:00 10/13/17 08:46 (Zofran Inj) 4 mg Q6H PRN IVP 10/12/17 23:00 10/13/17 06:00 (Tylenol) 650 mg Q6H PRN PO 10/12/17 23:00 ([place] 5-325 Mg) 1 tab Q4H PRN PO 10/12/17 23:00 10/13/17 08:48 (Morphine Inj) 2 mg Q3H PRN IV PUSH 10/12/17 23:00 10/13/17 06:00 (Natali-Colace) 1 tab BID PO 10/13/17 09:00 10/13/17 08:46 (Milk Of Magnesia Liq) 30 ml Q12H PRN PO 10/12/17 23:00 (Senokot) 17.2 mg Q12H PRN PO 10/12/17 23:00 (Dulcolax Supp) 10 mg DAILY PRN RECTAL 10/12/17 23:00 (Lactulose Liq) 30 ml DAILY PRN PO 10/12/17 23:00 Ceftriaxone Sodium 1000 mg/ Sodium Chloride 100 ml @ 200 mls/hr Q24H IV 10/12/17 23:00 10/13/17 02:23 (Flomax) 0.4 mg DAILY PO 10/13/17 09:00 10/13/17 08:46 Family History Family history reviewed and noncontributory to present illness Social History Negative for alcohol, tobacco or drugs. Physical Exam Vital Signs Date Time Temp Pulse Resp B/P (MAP) Pulse Ox O2 Delivery O2 Flow Rate FiO2 10/13/17 12:00 97.9 81 16 120/81 (94) 96 10/13/17 09:37 Room Air 10/13/17 08:00 97.6 68 16 134/91 (105) 98 10/13/17 04:00 97.7 70 18 121/71 (88) 100 10/13/17 01:45 97.8 75 16 149/82 (104) 99 10/13/17 00:30 Room Air 10/12/17 22:23 62 16 137/90 (106) 98 10/12/17 19:19 99.1 83 16 152/92 (112) 83 Room Air Physical Exam GENERAL: This is a well-nourished, well-developed patient, in no apparent distress. SKIN: No rashes, ecchymoses or lesions. Cool and dry. HEAD: Atraumatic. Normocephalic. EYES: . Extraocular motions intact. No scleral icterus. No injection or drainage. ENT: Nose without bleeding, purulent drainage. Airway patent. NECK: Trachea midline. No JVD or lymphadenopathy. CARDIOVASCULAR: Normal pulse RESPIRATORY: Nonlabored GASTROINTESTINAL: Abdomen soft, non-tender, nondistended. MUSCULOSKELETAL: Extremities without clubbing, cyanosis, or edema, however limited UE movement and atrophy NEUROLOGICAL: Awake and alert. Normal speech. Lab results reviewed: Yes Laboratory Tests Test 10/12/17 20:58 10/13/17 06:26 White Blood Count 15.9 7.7 Red Blood Count 5.11 4.33 Hemoglobin 16.0 13.8 Hematocrit 47.8 40.5 Mean Corpuscular Volume 93.4 93.6 Mean Corpuscular Hemoglobin 31.3 31.8 Mean Corpuscular Hemoglobin Concent 33.5 34.0 Red Cell Distribution Width 13.0 13.0 Platelet Count 276 229 Mean Platelet Volume 9.3 9.2 Neutrophils (%) (Auto) 75.5 49.4 Lymphocytes (%) (Auto) 16.3 40.2 Monocytes (%) (Auto) 7.5 7.6 Eosinophils (%) (Auto) 0.4 2.0 Basophils (%) (Auto) 0.3 0.8 Neutrophils # (Auto) 12.0 3.8 Lymphocytes # (Auto) 2.6 3.1 Monocytes # (Auto) 1.2 0.6 Eosinophils # (Auto) 0.1 0.2 Basophils # (Auto) 0.0 0.1 CBC Comment DIFF FINAL DIFF FINAL Differential Comment Urine Color [place] Urine Turbidity Slightly Urine pH 6.5 Urine Specific [place] 1.010 Urine Protein 30 Urine Glucose (UA) NEG Urine Ketones 40 Urine Occult Blood LARGE Urine Nitrite NEG Urine Bilirubin NEG Urine Urobilinogen 0.2 Urine Leukocyte Esterase NEG Urine RBC Urine WBC 1 Urine Bacteria RARE Microscopic Urinalysis Comment CULT NOT INDICATED Blood Urea Nitrogen 10 7 Creatinine 0.24 LESS THAN 0.15 Random Glucose 80 82 Calcium Level 9.0 8.1 Sodium Level 139 144 Potassium Level 3.7 3.4 Chloride Level 102 109 Carbon Dioxide Level 26.1 26.6 Anion Gap 11 8 Estimat Glomerular Filtration Rate 477 820 Total Protein 6.2 Albumin 3.0 Alkaline Phosphatase 81 Aspartate Amino Transf (AST/SGOT) 113 Alanine Aminotransferase (ALT/SGPT) 120 Total Bilirubin 0.5 Result Diagram: 10/13/1762510/13/17625 Personally reviewed images: Yes Imaging CT Ab/Pel: 1. Patient's symptoms are due to a 4-5 mm stone in the distal right ureter, just above the right acetabular roof with resulting hydroureter and right hydronephrosis. 2. Patient is status post cholecystectomy. 3. Marked rotoscoliosis of the thoracolumbar spine with extensive Guan giuseppe fixation. Assessment and Plan Problem List: (1) Kidney stone ICD Code: N20.0 - Calculus of kidney Status: Acute (2) Hydronephrosis ICD Code: N13.30 - Unspecified hydronephrosis (3) Renal stone ICD Code: N20.0 - Calculus of kidney (4) Intractable pain ICD Code: R52 - Pain, unspecified Assessment and Plan Currently comfortable, no pain, no fevers No immediate surgical intervention at this time Patient has good chance of passing stone. Recommend Pain control and flomax. Toradol is good choice for a short 5 day course to alleviate pain/inflammation to allow stone passage Will continue to follow If doing well, may consider discharge in the next day or two with Urology clinic follow-up However if pain worsens or fevers develop, will consider ureteral stent placement Discussed with patient who understands and agrees with above plan Bart Garcia MD October 13, 2017 15:38
[2017-10-13 16:00] VITALS: BP 154/97; PULSE 97; RESP 16; TEMP 97.9; O2SAT 100
[2017-10-13 20:00] VITALS: BP 112/69; PULSE 88; RESP 18; TEMP 98.4; O2SAT 97
[2017-10-14] VITALS: BP 115/79; PULSE 80; RESP 18; TEMP 98.1; O2SAT 98
[2017-10-14 04:00] VITALS: BP 116/75; PULSE 82; RESP 18; TEMP 98.5; O2SAT 95
[2017-10-14] MEDS: SODIUM CHLOR 0.9% 1000 ML INJ 1,000 ML IV SCH ×2 (04:56→14:56)
[2017-10-14 08:00] VITALS: BP 146/90; PULSE 85; RESP 16; TEMP 97.8; O2SAT 95
[2017-10-14] MEDS: SODIUM CHLORIDE 0.9% FLUSH 10 ML FLUSH IV FLUSH SCH (08:18)
[2017-10-14] MEDS: DOCUSATE SODIUM 50 MG/SENNA 8.6 MG TAB PO SCH (08:27)
[2017-10-14] MEDS: TAMSULOSIN HCL 0.4 MG CAP PO SCH (08:27)
--- NOTE | 2017-10-14 09:06 | HHI.PR ---
Subjective Patient symptoms today Patient doing well this am. No pain, no fevers. WBC normalized. Objective Vital Signs Vital Signs Date Time Temp Pulse Resp B/P (MAP) Pulse Ox O2 Delivery O2 Flow Rate FiO2 10/14/17 08:19 Room Air 10/14/17 08:00 97.8 85 16 146/90 (108) 95 10/14/17 05:35 21 10/14/17 04:00 98.5 82 18 116/75 (89) 95 10/14/17 00:00 98.1 80 18 115/79 (91) 98 10/13/17 21:32 Room Air 10/13/17 20:00 98.4 88 18 112/69 (83) 97 10/13/17 16:00 97.9 97 16 154/97 (116) 100 10/13/17 12:00 97.9 81 16 120/81 (94) 96 10/13/17 09:37 Room Air Intake & Output 10/14/17 10/14/17 07:00 19:00 Intake Total 340 ml 2350 ml Output Total 1600 ml 750 ml Balance -1260 ml 1600 ml Intake Oral 340 ml IV Total 2350 ml Output Urine Total 1600 ml 750 ml # Bowel Movements 0 Result Diagram: 10/13/1762510/13/17625 Objective Remarks NAD, AAOx3 Resp NL Ab Nontender Catheter clear urine Medications and IVs Current Medications Medications (Trade) Dose Ordered Sig/Bruno Route Start Time Stop Time Status Last Admin Sodium Chloride 1,000 ml @ 100 mls/hr Q10H IV 10/12/17 22:56 10/14/17 04:56 (NS Flush) 2 ml UNSCH PRN IV FLUSH 10/12/17 23:00 10/13/17 02:23 (NS Flush) 2 ml BID IV FLUSH 10/13/17 09:00 10/13/17 08:46 (Zofran Inj) 4 mg Q6H PRN IVP 10/12/17 23:00 10/13/17 06:00 (Tylenol) 650 mg Q6H PRN PO 10/12/17 23:00 ([place] 5-325 Mg) 1 tab Q4H PRN PO 10/12/17 23:00 10/13/17 08:48 (Morphine Inj) 2 mg Q3H PRN IV PUSH 10/12/17 23:00 10/13/17 06:00 (Natali-Colace) 1 tab BID PO 10/13/17 09:00 10/14/17 08:27 (Milk Of Magnesia Liq) 30 ml Q12H PRN PO 10/12/17 23:00 (Senokot) 17.2 mg Q12H PRN PO 10/12/17 23:00 (Dulcolax Supp) 10 mg DAILY PRN RECTAL 10/12/17 23:00 (Lactulose Liq) 30 ml DAILY PRN PO 10/12/17 23:00 Ceftriaxone Sodium 1000 mg/ Sodium Chloride 100 ml @ 200 mls/hr Q24H IV 10/12/17 23:00 10/13/17 22:43 (Flomax) 0.4 mg DAILY PO 10/13/17 09:00 10/14/17 08:27 Assessment and Plan Problem List: (1) Kidney stone ICD Code: N20.0 - Calculus of kidney Status: Acute (2) Hydronephrosis ICD Code: N13.30 - Unspecified hydronephrosis (3) Renal stone ICD Code: N20.0 - Calculus of kidney (4) Intractable pain ICD Code: R52 - Pain, unspecified Assessment and Plan Currently comfortable, no pain, no fevers We discussed the possibility that he may have passed the stone. However patient is concerned that the stone may still be there and is worried that he may develop the pain again later Therefore we will obtain a noncontrast CT ab/pel again today. If any stone remains, we may consider stent/ureteroscopy Patient understands and agrees with above plan Bart Garcia MD October 14, 2017 09:06
[2017-10-14] MEDS ORDERED: HYDR-3516 PO (09:26)
--- NOTE | 2017-10-14 11:50 | HHI.PR ---
Subjective Remarks Follow-up for kidney stone and right hydronephrosis. Patient is currently resting in bed. No acute concerns. He denies any abdominal pain, flank pain, fever or chills. Objective Vitals Vital Signs Date Time Temp Pulse Resp B/P (MAP) Pulse Ox O2 Delivery O2 Flow Rate FiO2 10/14/17 08:19 Room Air 10/14/17 08:00 97.8 85 16 146/90 (108) 95 10/14/17 05:35 21 10/14/17 04:00 98.5 82 18 116/75 (89) 95 10/14/17 00:00 98.1 80 18 115/79 (91) 98 10/13/17 21:32 Room Air 10/13/17 20:00 98.4 88 18 112/69 (83) 97 10/13/17 16:00 97.9 97 16 154/97 (116) 100 10/13/17 12:00 97.9 81 16 120/81 (94) 96 I/O 10/13/17 10/13/17 10/13/17 10/14/17 10/14/17 10/14/17 07:00 15:00 23:00 07:00 15:00 23:00 Intake Total 897 ml 100 ml 240 ml 2350 ml Output Total 450 ml 650 ml 1200 ml 1600 ml 750 ml Balance 447 ml -650 ml -1100 ml -1360 ml 1600 ml Intake Oral 240 ml 100 ml 240 ml IV Total 657 ml 2350 ml Output Urine Total 450 ml 650 ml 1200 ml 1600 ml 750 ml # Voids 1 # Bowel Movements 0 0 0 Result Diagram: 10/13/1762510/13/17625 Objective Remarks GENERAL: Alert, NAD. SKIN: Warm and dry. HEAD: Normocephalic. EYES: No scleral icterus. No injection or drainage. NECK: Supple, trachea midline. No JVD or lymphadenopathy. CARDIOVASCULAR: Regular rate and rhythm without murmurs, gallops, or rubs. RESPIRATORY: Breath sounds equal bilaterally. No accessory muscle use. GASTROINTESTINAL: Abdomen soft, non-tender, nondistended. MUSCULOSKELETAL: No cyanosis, or edema. BACK: Nontender without obvious deformity. Mild right sided CVA tenderness. Procedures None. A/P Problem List: (1) Renal stone ICD Code: N20.0 - Calculus of kidney (2) Hydronephrosis ICD Code: N13.30 - Unspecified hydronephrosis (3) Intractable pain ICD Code: R52 - Pain, unspecified (4) Spinal muscular atrophy ICD Code: G12.9 - Spinal muscular atrophy, unspecified Assessment and Plan This is a 22-year-old male with a PMH of Spinal Muscular Atrophy who presented to the ER with complaints of right-sided flank pain x1 day. Seen in ER on for similar complaints, CT Abd/Pelvis w/ 4-5mm stone distal right ureter w/ hydroureter and hydronephrosis, s/p IVF/Toradol, given referral to Urology and Rx for Flomax/[place]. Right distal ureteral stone Right hydronephrosis - Continue Ceftriaxone 1g Q24hrs - Continue NS @ 100cc/hour - Acetaminophen, [place], Morphine for Pain. - Urology evaluated patient. Today urology recommended abdomen pelvis CT scan without contrast. - CT abdomen pelvis ordered. - If negative for any persistent kidney stone and hydronephrosis patient can be discharged home today. Spinal Muscular Atrophy: wheelchair-bound, at baseline. Full code. SCDs. Navarro Bey DO October 14, 2017 11:50 am
[2017-10-14 12:00] VITALS: BP 124/87; PULSE 100; RESP 16; TEMP 98; O2SAT 100
[2017-10-14 16:00] VITALS: BP 128/86; PULSE 86; RESP 16; TEMP 97.5; O2SAT 96
--- NOTE | 2017-10-14 16:08 | RADRPT ---
EXAM DATE/TIME: 10/14/2017 15:49 [place] COMPARISON: CT ABDOMEN & PELVIS W/O CONTRAST, October 11, 2017, 5:59. INDICATIONS : Abnormal prior CT. Evaluate for kidney stone. ORAL CONTRAST: No oral contrast ingested. RADIATION DOSE: 8.45 CTDIvol (mGy) MEDICAL HISTORY : Renal calculi. Spinal Muscular Atrophy SURGICAL HISTORY : spinal surgery ENCOUNTER: Initial ACUITY: 3 days PAIN SCALE: 7/10 LOCATION: Right flank TECHNIQUE: Volumetric scanning of the abdomen and pelvis was performed. Using automated exposure control and ad justment of the mA and/or kV according to patient size, radiation dose was kept as low as reasonably achievable to obtain optimal diagnostic quality images. DICOM format image data is available electro nically for review and comparison. FINDINGS: LOWER LUNGS: The visualized lower lungs are clear. LIVER: Homogeneous density without lesion. There is no dilation of the biliary tree. No calcified gallston es. Status post cholecystectomy. SPLEEN: Normal size without lesion. PANCREAS: Within normal limits. KIDNEYS: Normal in size and shape. The previously noted obstructing calculus within the right distal ureter maldonado s passed ASSED. No hydronephrosis is noted on today's examination ADRENAL GLANDS: Within normal limits. VASCULAR: There is no aortic aneurysm. BOWEL/MESENTERY: The stomach, small bowel, and colon demonstrate no acute abnormality. There is no free intraperitone al air or fluid. ABDOMINAL WALL: Within normal limits. RETROPERITONEUM: There is no lymphadenopathy. BLADDER: No wall thickening or mass. REPRODUCTIVE: Within normal limits. INGUINAL: There is no lymphadenopathy or hernia. MUSCULOSKELETAL: Severe scoliosis of the thoracolumbar spine are noted. Guan rods are noted within the thoracolu mbar spine. CONCLUSION: 1. Interval passage of the previously noted obstructing calculus within the right distal ureter with no residual obstructive uropathy noted. 2. Stable severe scoliosis of the thoracolumbar spine. Javed Barr MD on October 14, 2017 at 16:00 Board Certified Radiologist. This report was verified electronically.
[2017-10-14] MEDS ORDERED: CIPR250T52 PO (17:07)
[2017-10-14] MEDS ORDERED: TAMS5CAP PO (17:07)
--- NOTE | 2017-10-14 17:17 | HHI.DS ---
Discharge Summary Admission Date October 12, 2017 at 22:53 Discharge Date: October 14, 2017 Admitting Diagnosis hydronephrosis, kidney stone (1) Renal stone ICD Code: N20.0 - Calculus of kidney (2) Hydronephrosis ICD Code: N13.30 - Unspecified hydronephrosis (3) Intractable pain ICD Code: R52 - Pain, unspecified (4) Spinal muscular atrophy ICD Code: G12.9 - Spinal muscular atrophy, unspecified Procedures None. Brief History - From Admission This is a 22-year-old male with a PMH of Spinal Muscular Atrophy who presented to the ER with complaints of right-sided flank pain x1 day. Seen in ER on for similar complaints, CT Abd/Pelvis w/ 4-5mm stone distal right ureter w/ hydroureter and hydronephrosis, s/p IVF/Toradol, given referral to Urology and Rx for Flomax/[place]. Returns w/ ongoing complaints as he was unable to fill prescriptions, pt is wheelchair-bound due to SMA and has difficulty caring for self. On arrival, BP 152/92, HR 83, O2 sat 98% on RA, Temp 99.1. WBC 15.9. Chemistry essentially unremarkable. UA with significant hematuria. CBC/BMP: 10/13/17 0626 10/13/17 0626 Significant Findings Laboratory Tests Test 10/12/17 20:58 10/13/17 06:26 White Blood Count 15.9 TH/MM3 (4.0-11.0) Neutrophils (%) (Auto) 75.5 % (16.0-70.0) Neutrophils # (Auto) 12.0 TH/MM3 (1.8-7.7) Monocytes # (Auto) 1.2 TH/MM3 (0-0.9) Urine Protein 30 mg/dL (NEG-TRACE) Urine Ketones 40 mg/dL (NEG) Urine Bacteria RARE /hpf (NONE) Creatinine 0.24 MG/DL (0.60-1.30) LESS THAN 0.15 MG/DL Red Blood Count 4.33 MIL/MM3 (4.50-5.90) Total Protein 6.2 GM/DL (6.4-8.2) Albumin 3.0 GM/DL (3.4-5.0) Calcium Level 8.1 MG/DL (8.5-10.1) Aspartate Amino Transf (AST/SGOT) 113 U/L (15-37) Alanine Aminotransferase (ALT/SGPT) 120 U/L (12-78) Potassium Level 3.4 MEQ/L (3.5-5.1) Chloride Level 109 MEQ/L (98-107) Imaging Last Impressions Abdomen/Pelvis CT 10/14/17 0000 Signed Impressions: Service Date/Time: Saturday, October 14, 2017 15:49 - CONCLUSION: 1. Interval passage of the previously noted obstructing calculus within the right distal ureter with no residual obstructive uropathy noted. 2. Stable severe scoliosis of the thoracolumbar spine. Javed Barr MD PE at Discharge GENERAL: Alert, NAD. SKIN: Warm and dry. HEAD: Normocephalic. EYES: No scleral icterus. No injection or drainage. NECK: Supple, trachea midline. No JVD or lymphadenopathy. CARDIOVASCULAR: Regular rate and rhythm without murmurs, gallops, or rubs. RESPIRATORY: Breath sounds equal bilaterally. No accessory muscle use. GASTROINTESTINAL: Abdomen soft, non-tender, nondistended. MUSCULOSKELETAL: No cyanosis, or edema. BACK: Nontender without obvious deformity. Mild right sided CVA tenderness. Pt update on day of discharge Patient is doing well. Denies any flank pain, abdominal pain, dysuria, hematuria or fever/chills. Hospital Course This is a 22-year-old male with a PMH of Spinal Muscular Atrophy who presented to the ER with complaints of right-sided flank pain x1 day. Seen in ER on for similar complaints, CT Abd/Pelvis w/ 4-5mm stone distal right ureter w/ hydroureter and hydronephrosis, s/p IVF/Toradol, given referral to Urology and Rx for Flomax/[place]. Right distal ureteral stone Right hydronephrosis - Received Ceftriaxone 1g Q24hrs - Acetaminophen, [place], Morphine for Pain. - Urology evaluated patient. Today urology recommended abdomen pelvis CT scan without contrast. - CT abdomen pelvis ordered. - CT abd/pelvis today 10/14/2017 shows passage of the stone. - Will d/c patient home with 3 days of abx. Patient mentioned that he cannot follow up with Dr. Garcia due to insurance. - Will refer him to [facility]. Spinal Muscular Atrophy: wheelchair-bound, at baseline. Full code. SCDs. Pt Condition on Discharge: Good Discharge Disposition: Discharge Home Discharge Time: <= 30 minutes Discharge Instructions DIET: Follow Instructions for: As Tolerated, No Restrictions Activities you can perform: Regular-No Restrictions Follow up Referrals: PCP Follow-up - 1 Week Urology with Alex Titus DO New Medications: Ciprofloxacin (Cipro) 250 Mg Tab 250 MG PO BID for Infection, #6 TAB 0 Refills Hydrocodone/Acetaminophen (Hydrocodone-Acetamin 5-325 mg) 5 Mg-325 Mg Tablet 1 TAB PO Q6HR PRN for PAIN SCALE 5 TO 10, #12 TAB Tamsulosin (Flomax) 0.4 Mg Cap 0.4 MG PO DAILY for urinary, #30 CAP Navarro Bey DO October 14, 2017 17:17
== END 2017-10-14 19:37 | disposition home or self-care (01) | DRG 694 ==
LOC: NEPE 19:05 → NEDA 22:53 → N06B 10-13 01:04
PROVIDERS: ADMIT Hospitalist; ATTEND Hospitalist
DX: N13.2 Hydronephrosis with renal and ureteral calculous obstruction (principal); G12.9 Spinal muscular atrophy, unspecified; Z99.3 Dependence on wheelchair
CPT/HCPCS: 74176; 80048; 80053; 81001; 85007; 85025; 85027; 96361; 96374; 96375; J0696; J1885; J2270; J2405; J7030